=== PATIENT | male | born 2000 | race Caucasian/White ===

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

== ENCOUNTER 2022-07-01 17:42 | Emergency (ER) | payer OTHER ==
[~2022-07-01] VITALS: Ht 175.3 cm; Wt 59.1 kg
[2022-07-01 17:59] VITALS: BP 104/62
== END 2022-07-01 19:05 | disposition left against medical advice (07) ==
LOC: EMS 17:42
DX: R11.10 Vomiting, unspecified (principal); Z53.21 Procedure and treatment not carried out due to patient leaving prior to being seen by health care provider
CPT/HCPCS: 99281; Z7502